=== PATIENT | female | born 1985 | race Caucasian/White ===

== ENCOUNTER 2016-10-07 13:47 | Emergency (ER) | payer SELFPAY ==
[2016-10-07] MEDS ORDERED: ONDANSETRON 4 MG TAB.RAPDIS PO ONE ×2 (14:02→15:35)
--- NOTE | 2016-10-07 14:03 | ER Document Report ---
ED Medical Screen (RME) - General Stated Complaint: BLOOD IN URINE Mode of Arrival: Ambulatory Information source: Patient Notes: Patient presents complaining of lower pelvic pain, left flank pain and hematuria. Patient also complains of pruritic rash to her trunk and extremities for the past 2 days. Patient reports subjective fever with nausea. Patient states she's had UTI infection before, and this does not feel like a typical UTI. TRAVEL OUTSIDE OF THE [place] IN LAST 30 DAYS: No - Related Data Allergies/Adverse Reactions: No Known Allergies Allergy (Verified 07/26/15 15:29) Past Medical History - Social History Family history: None Psychiatric Medical History: Reports: Hx Attention Deficit Hyperactivity Disorder, Hx Bipolar Disorder, Hx Post Traumatic Stress Disorder Past Surgical History: Reports: Hx Section - Immunizations Hx Diphtheria, Pertussis, Tetanus Vaccination: No Physical Exam - Vital signs Vitals: Temp Pulse Resp BP Pulse Ox 97.5 F 117 H 18 112/66 99 10/07/16 13:54 10/07/16 13:54 10/07/16 13:54 10/07/16 13:54 10/07/16 13:54 - Abdominal Tenderness: Tender - Lower pelvic - Back Back: CVA tenderness - Left Course - Vital Signs Vital signs: Temp Pulse Resp BP Pulse Ox 97.5 F 117 H 18 112/66 99 10/07/16 13:54 10/07/16 13:54 10/07/16 13:54 10/07/16 13:54 10/07/16 13:54
[2016-10-07 14:52] LABS: ABSOLUTE MONOCYTES (AUTO) 0.5 10^3/uL (0.1-1.4); ABSOLUTE NEUT (AUTO) 5.7 10^3/uL (1.7-8.2); BASOPHILS % (AUTO) 0.4 % (0-2); EOSINOPHILS % (AUTO) 0.2 % (0-6); HEMATOCRIT 46.9 % (36.0-47.0); HEMOGLOBIN 15.9 g/dL (12.0-15.5); HGB HCT DIFFERENCE 0.8; LYMPHOCYTES % (AUTO) 24.7 % (13-45); MEAN CORPUSCULAR HEMOGLOBIN 31.6 pg (27.0-33.4); MEAN CORPUSCULAR HGB CONC 33.8 g/dL (32.0-36.0); MEAN CORPUSCULAR VOLUME 94 fl (80-97); MONOCYTES % (AUTO) 5.6 % (3-13); RED BLOOD COUNT 5.02 10^6/uL (3.72-5.28); RED CELL DISTRIBUTION WIDTH 14.7 % (11.5-14.0); SEGMENTED NEUTROPHILS % (AUTO) 69.1 % (42-78); WHITE BLOOD COUNT 8.2 10^3/uL (4.0-10.5)
[2016-10-07 14:57] LABS: APPEARANCE,URINE CLOUDY; BILIRUBIN,URINE MODERATE (NEGATIVE); CALCIUM OXALATE CRYSTALS,URINE FEW /HPF; GLUCOSE, URINE NEGATIVE (NEGATIVE); KETONES,URINE TRACE mg/dL (NEGATIVE); LEUKOCYTE ESTERASE,URINE MODERATE (NEGATIVE); NITRITE,URINE NEGATIVE (NEGATIVE); PROTEIN,URINE 100 mg/dL (NEGATIVE); URINE SPECIFIC GRAVITY 1.031
[2016-10-07 15:18] LABS: ALANINE AMINOTRANSFERASE 32 U/L (9-52); ALBUMIN 3.8 g/dL (3.5-5.0); ALKALINE PHOSPHATASE 50 U/L (38-126); ANION GAP 12 (5-19); ASPARTATE AMINO TRANSFERASE 23 U/L (14-36); BILIRUBIN,TOTAL 0.5 mg/dL (0.2-1.3); BLOOD UREA NITROGEN 10 mg/dL (7-20); CALCIUM 9.6 mg/dL (8.4-10.2); CARBON DIOXIDE 28 mmol/L (22-30); CHLORIDE 106 mmol/L (98-107); CREATININE RESULT 0.72 mg/dL (0.52-1.25); GLUCOSE 73 mg/dL (75-110); LIPASE 43.3 U/L (23-300); POTASSIUM 3.9 mmol/L (3.6-5.0); SODIUM 145.9 mmol/L (137-145)
[2016-10-07] MEDS ORDERED: NORMAL SALINE 1000 ML 1,000 ML IV ONE (15:40)
[2016-10-07] MEDS ORDERED: SULFAMETHOXAZOLE/TRIMETHOPRIM 800-160 MG TABLET PO ONE (18:45)
[2016-10-07] MEDS ORDERED: HYDROCODONE/ACETAMINOPHEN 5-325 MG 6 TAB/DSPK PO PRN (18:45)
[2016-10-07] MEDS ORDERED: HYDROCODONE/ACETAMINOPHEN 5-325 MG TABLET PO ONE (18:45)
--- NOTE | 2016-10-07 18:45 | ER Document Report ---
ED General - General Mode of Arrival: Ambulatory Information source: Patient TRAVEL OUTSIDE OF THE [place] IN LAST 30 DAYS: No - HPI Patient complains to provider of: Flank pain and Rash Associated symptoms: Other - see above <FELIX SMITH - Last Filed: 10/07/16 18:56> <ADELINE CASTLE - Last Filed: 10/07/16 21:05> - General Chief Complaint: Urinary Problem Stated Complaint: BLOOD IN URINE Notes: 31 year old female with past history of rashes presents to the ED complaining of flank pain and a rash to her right mid-back, bilateral upper extremities, and abdominal regions. Patient states that this rash is not similar to the rash in the past (05/26/2016). Patient additionally complains of hematuria , chills, fever, and diaphoresis. Patient denies being on any medication. Patient also denies having a primary care provider. (FELIX SMITH) This 31-year-old female patient in the emergency room complaining of pelvic pain , flank pain and blood in the urine. She also complains about a rash to her trunk and extremities for 2 days. He reports that she has been having fevers but has not checked her temperature. She was seen here on 05/26/2016 complaining of rash all over, left-sided numbness with headache, and bilateral vision loss that would come and go. She does report a diagnosis of bipolar disorder with PTSD, ADHD, and "major depression". She is not on any medications at this time. Her urinalysis showed no blood in the urine. Her white blood cell count was not elevated nor did it show a shift. There is no fever on the triage vital signs. At this time the patient is in tears because she has been waiting 6 hours to be seen. (ADELINE CASTLE) - Related Data Allergies/Adverse Reactions: No Known Allergies Allergy (Verified 07/26/15 15:29) Past Medical History - General Information source: Patient - Social History Smoking Status: Current Every Day Smoker Cigarette use (# per day): Yes Chew tobacco use (# tins/day): No Smoking Education Provided: No Frequency of alcohol use: None Drug Abuse: None Family History: Reviewed & Not Pertinent - Medical History Medical History: Negative Psychiatric Medical History: Reports: Hx Attention Deficit Hyperactivity Disorder, Hx Bipolar Disorder, Hx Post Traumatic Stress Disorder Past Surgical History: Reports: Hx Section - Immunizations Hx Diphtheria, Pertussis, Tetanus Vaccination: No <FELIX SMITH - Last Filed: 10/07/16 18:56> - Social History Smoking Status: Current Every Day Smoker Cigarette use (# per day): Yes Chew tobacco use (# tins/day): No Smoking Education Provided: No Frequency of alcohol use: None Drug Abuse: None Occupation: unemployed - Medical History Medical History: Negative Psychiatric Medical History: Reports: Hx Depression <ADELINE CASTLE - Last Filed: 10/07/16 21:05> Review of Systems - Review of Systems Constitutional: See HPI, Chills, Diaphoresis, Fever EENT: No symptoms reported Cardiovascular: No symptoms reported Respiratory: No symptoms reported Gastrointestinal: No symptoms reported Genitourinary: See HPI, Hematuria Female Genitourinary: No symptoms reported Musculoskeletal: No symptoms reported Skin: See HPI, Rash Hematologic/Lymphatic: No symptoms reported Neurological/Psychological: No symptoms reported -: Yes All other systems reviewed and negative <FELIX SMITH - Last Filed: 10/07/16 18:56> - Review of Systems Constitutional: Fever EENT: No symptoms reported Cardiovascular: No symptoms reported Respiratory: No symptoms reported Gastrointestinal: No symptoms reported Genitourinary: See HPI, Hematuria Female Genitourinary: No symptoms reported Musculoskeletal: No symptoms reported Skin: See HPI, Rash Hematologic/Lymphatic: No symptoms reported Neurological/Psychological: No symptoms reported <ADELINE CASTLE - Last Filed: 10/07/16 21:05> Physical Exam - Vital signs Interpretation: Normal - General General appearance: Alert, Anxious In distress: None - HEENT Head: Normocephalic, Atraumatic Eyes: Normal Pupils: PERRL - Respiratory Respiratory status: No respiratory distress - Cardiovascular Rhythm: Regular - Abdominal Inspection: Normal - Back Back: Normal - Extremities General upper extremity: Other General lower extremity: Other - Neurological Neuro grossly intact: Yes - Psychological Associated symptoms: Agitated, Angry, Anxious, Depressed - Skin Skin Temperature: Warm Skin Moisture: Dry <FELIX SMITH - Last Filed: 10/07/16 18:56> - Vital signs Interpretation: Normal - General General appearance: Alert, Anxious In distress: None - HEENT Head: Normocephalic, Atraumatic Eyes: Normal Pupils: PERRL - Respiratory Respiratory status: No respiratory distress - Cardiovascular Rhythm: Regular - Abdominal Inspection: Normal - Back Back: Normal - Extremities General upper extremity: Other - Normal extremities other than the rash. General lower extremity: Other - Normal lower extremities other than the rash - Neurological Neuro grossly intact: Yes - Psychological Associated symptoms: Agitated, Angry, Anxious, Depressed - Skin Skin Temperature: Warm Skin Moisture: Dry <ADELINE CASTLE - Last Filed: 10/07/16 21:05> - Vital signs Vitals: Temp Pulse Resp BP Pulse Ox 97.5 F 117 H 18 112/66 99 10/07/16 13:54 10/07/16 13:54 10/07/16 13:54 10/07/16 13:54 10/07/16 13:54 (ADELINE CASTLE) - Skin Notes: There is an erythematous blanching scattered rash over the trunk and extremities that is suspicious for early MRSA type infection. There is no blistering, there is no weeping, there are no scabs. (ADELINE CASTLE) Course - Laboratory Result Diagrams: 10/07/16 14:30 10/07/16 14:30 <FELIX SMITH - Last Filed: 10/07/16 18:56> - Laboratory Result Diagrams: 10/07/16 14:30 10/07/16 14:30 <ADELINE CASTLE - Last Filed: 10/07/16 21:05> - Vital Signs Vital signs: Temp Pulse Resp BP Pulse Ox 98.0 F 97 18 125/62 98 10/07/16 19:04 10/07/16 19:04 10/07/16 19:04 10/07/16 19:04 10/07/16 19:04 (FELIX SMITH) (ADELINE CASTLE) - Laboratory Laboratory results interpreted by me: 10/07/16 10/07/16 10/07/16 14:30 14:30 14:30 Hgb 15.9 H RDW 14.7 H Sodium 145.9 H Glucose 73 L Urine Protein 100 H Urine Ketones TRACE H Urine Bilirubin MODERATE H Urine Urobilinogen 4.0 H Ur Leukocyte Esterase MODERATE H Urine Ascorbic Acid 20 H (FELIX SMITH) (ADELINE CASTLE) Discharge <FELIX SMITH - Last Filed: 10/07/16 18:56> <ADELINE CASTLE - Last Filed: 10/07/16 21:05> - Discharge Clinical Impression: Skin rash Urinary tract infection Qualifiers: Urinary tract infection type: site unspecified Hematuria presence: without hematuria Qualified Code(s): N39.0 - Urinary tract infection, site not specified Condition: Stable Disposition: HOME, SELF-CARE Additional Instructions: Urinary Tract Infection: Your evaluation indicates that you have a urinary tract infection. This is due to germs growing in the bladder. This is a common problem. This infection usually responds quickly to antibiotics. Your antibiotic should be taken exactly as prescribed. Drink plenty of fluids -- three to four quarts a day. Occasionally, a bladder anesthetic will be prescribed to help stop the feeling of urgency until the antibiotic has a chance to clear the infection. This may cause your urine to be dark orange. Certain urine infections require a culture. If the doctor obtained a culture, the results will be back in two days. You should call to see if a change in treatment is needed. A repeat urinalysis after you finish treatment is often recommended. The physician will let you know if further testing is required. Call the doctor if you develop fever, chills, flank pain, inability to urinate, or blood in the urine. TAKE THE MEDICATION PRESCRIBED. DRINK PLENTY OF FLUIDS. TAKE ALEVE OR MOTRIN FOR PAIN. FOLLOW UP WITH A LOCAL MEDICAL DOCTOR IF NOT IMPROVING. RETURN TO THE EMERGENCY ROOM IF ANY NEW OR WORSENING SYMPTOMS. Prescriptions: Sulfamethoxazole/Trimethoprim [Bactrim Ds Tablet] 2 tab PO BID #28 tablet Scribe Attestation: 10/07/16 18:49 I personally performed the services described in the documentation, reviewed and edited the documentation which was dictated to the scribe in my presence, and it accurately records my words and actions. (ADELINE CASTLE) Scribe Documentation - Scribe Written by Rashaad:: Rashaad Soler, 10/07/2016 19:00 acting as scribe for :: Isabella <FELIX SMITH - Last Filed: 10/07/16 18:56>
[2016-10-07 19:36] VITALS: BP 125/62
== END 2016-10-07 19:05 | disposition home or self-care (01) ==
LOC: ER 13:47
DX: N39.0 Urinary tract infection, site not specified (principal); R21 Rash and other nonspecific skin eruption; R50.9 Fever, unspecified; R61 Generalized hyperhidrosis; R10.2 Pelvic and perineal pain; F17.210 Nicotine dependence, cigarettes, uncomplicated; F41.9 Anxiety disorder, unspecified; F32.9 Major depressive disorder, single episode, unspecified
CPT/HCPCS: 99283; 36415; 87086; 83690; 84703; 85025; 87088; 80053; 81001; 87186; S0119